=== PATIENT | female | born 2000 | race Caucasian/White ===

== ENCOUNTER 2021-07-18 10:30 | Outpatient (CLI) | payer OTHER ==
--- NOTE | 2021-07-18 11:13 | XRay Report ---
RIGHT KNEE HISTORY: Pain in right knee, history of torn ACL's with 2 surgeries. COMPARISON: None. TECHNIQUE: 4 views of the right knee obtained. FINDINGS: Bones: No evidence for acute fracture or dislocation. Small lucencies (measuring up to 5 mm) with sc lerotic periphery within the patella are felt to reflect postsurgical change. Joint spaces: Maintained. Soft tissues: No significant abnormality. Additional findings: None. IMPRESSION: Right knee without evidence of acute osseous injury. Small lucencies (measuring up to 5 mm) with sclerotic periphery within the patella are felt to reflec t postsurgical change. If knee pain persists or additional evaluation is clinically indicated, an MRI may be considered for further evaluation. Signer Name: Bari Burleson MD Signed: 07/18/2021 11:09 AM Workstation Name: [id number]
== END 2021-07-18 10:31 | disposition home or self-care (01) ==
LOC: XRAY 10:30
PROVIDERS: ATTEND Internal Medicine
DX: M25.561 Pain in right knee (principal)